=== PATIENT | male | born 1935 | race Caucasian/White ===

== ENCOUNTER 2017-10-08 04:30 | Observation (INO) | payer OTHER ==
[2017-10-08] VITALS (9 sets, daily range): BP systolic 119–189; BP diastolic 57–87; PULSE 52–68; RESP 16–18; TEMP 95.6–98.3; O2SAT 96–99
[2017-10-08] MEDS ORDERED: METO50TA PO (04:56)
[2017-10-08] MEDS ORDERED: TAMS0.4C4 (04:56)
[2017-10-08] MEDS ORDERED: PLAV75TA29 PO (04:56)
--- NOTE | 2017-10-08 05:17 | PD ---
HPI Chief Complaint: Complaint Time Seen by Provider: 05:09 Travel History International Travel<30 days: No Contact w/Intl Traveler<30days: No Traveled to known affect area: No History of Present Illness HPI Patient is an 82-year-old man coming in with 2 days of urinating dark red urine. He says he's urinated about 13 times almost a liter each time he says patient has a history of bladder stone in the past which caused him to have bleeding he also reports that he's been having back pain that has been steady for the last week or so he went to a chiropractor now he is wondering if he doesn't have a kidney stone causing the bleeding. Patient has no nausea no vomiting no diarrhea he has not seen another doctor for this and he has not taken any medication for this he has not been obstructed but he has dark red blood per urine PFSH Past Medical History Cancer: Yes (MELANOMA) Cardiac Catheterization: Yes Coronary Artery Disease: Yes Diminished Hearing: Yes ([place]KOLAI BOTH EARS) Hypertension: Yes Past Surgical History Coronary Artery Bypass Graft: Yes (X4) Coronary Stent: Yes (X2) Eye Surgery: Yes (BILAT CATARACTS) Tonsillectomy: Yes Other Surgery: Yes (RT LOWER LEG ARTERY, BLADDER, PROSTATE, MELANOMA) Social History Alcohol Use: No Tobacco Use: No Substance Use: No Allergies-Medications (Allergen,Severity, Reaction): Coded Allergies: codeine (Verified Allergy, Unknown, 10/08/17) Reported Meds & Prescriptions Reported Meds & Active Scripts Active Lisinopril 20 Mg Tab 20 Mg PO DAILY Reported Tamsulosin (Tamsulosin HCl) 0.4 Mg Cap 0.4 Mg HS Metoprolol Tartrate 50 Mg Tab 50 Mg PO DAILY Plavix (Clopidogrel Bisulfate) 75 Mg Tab 75 Mg PO DAILY Review of Systems Except as stated in HPI: all other systems reviewed are Neg Genitourinary: Positive: Hematuria Physical Exam Narrative GENERAL: no distress--> hematuria in urinal bedside dark purple urine in bottle SKIN: Warm and dry. HEAD: Atraumatic. Normocephalic. EYES: Pupils equal and round. No scleral icterus. No injection or drainage. ENT: No nasal bleeding or discharge. Mucous membranes pink and moist. NECK: Trachea midline. No JVD. CARDIOVASCULAR: Regular rate and rhythm. RESPIRATORY: No accessory muscle use. Clear to auscultation. Breath sounds equal bilaterally. GASTROINTESTINAL: Abdomen soft, non-tender, nondistended. Hepatic and splenic margins not palpable. MUSCULOSKELETAL: Extremities without clubbing, cyanosis, or edema. No obvious deformities. NEUROLOGICAL: Awake and alert. No obvious cranial nerve deficits. Motor grossly within normal limits. Five out of 5 muscle strength in the arms and legs. Normal speech. PSYCHIATRIC: Appropriate mood and affect; insight and judgment normal. Data Data Last Documented VS Orders Orders Complete Blood Count With Diff (10/08/17 05:13) Comprehensive Metabolic Panel (10/08/17 05:13) Ckmb (Isoenzyme) Profile (10/08/17 05:13) Troponin I (10/08/17 05:13) Lipase (10/08/17 05:13) Ct Abd/Pel W/O Iv Contrast (10/08/17 05:13) Urinalysis - C+S If Indicated (10/08/17 05:16) Metoprolol Succinate Er (Toprol Xl) (10/08/17 05:30) Place In Observation (10/08/17 ) Vital Signs (Adult) Q4H (10/08/17 06:11) Activity Oob Ad Bessie (10/08/17 06:11) Intake + Output LEW.QSHIFT (10/08/17 06:11) Diet Regular Basic (10/08/17 Breakfast) Sodium Chlor 0.9% 1000 Ml Inj (Ns 1000 M (10/08/17 06:11) Sodium Chloride 0.9% Flush (Ns Flush) (10/08/17 06:15) Sodium Chloride 0.9% Flush (Ns Flush) (10/08/17 09:00) Ondansetron Inj (Zofran Inj) (10/08/17 06:15) Scd Bilateral/Knee High LEW.BID (10/08/17 06:11) Saman Bilateral/Knee High LEW.QSHIFT (10/08/17 06:15) Acetaminophen (Tylenol) (10/08/17 06:15) Morphine Inj (Morphine Inj) (10/08/17 06:15) Docusate Sodium-Senna (Jerri-Colace) (10/08/17 09:00) Magnesium Hydroxide Liq (Milk Of Magnesi (10/08/17 06:15) Sennosides (Senokot) (10/08/17 06:15) Bisacodyl Supp (Dulcolax Supp) (10/08/17 06:15) Lactulose Liq (Lactulose Liq) (10/08/17 06:15) Consult Urology (10/08/17 ) Metoprolol Tartrate (Lopressor) (10/08/17 09:00) Tamsulosin (Flomax) (10/08/17 09:00) Levofloxacin 750 Mg Premix Inj (Levaquin (10/08/17 06:30) CKMB (10/08/17 05:20) CKMB% (10/08/17 05:20) Admit Order (Ed Use Only) (10/08/17 06:18) Labs Laboratory Tests Test 10/08/17 05:20 10/08/17 05:25 White Blood Count 5.7 TH/MM3 Red Blood Count 4.50 MIL/MM3 Hemoglobin 13.8 GM/DL Hematocrit 40.7 % Mean Corpuscular Volume 90.5 FL Mean Corpuscular Hemoglobin 30.6 PG Mean Corpuscular Hemoglobin Concent 33.9 % Red Cell Distribution Width 14.4 % Platelet Count 173 TH/MM3 Mean Platelet Volume 7.9 FL Neutrophils (%) (Auto) 62.3 % Lymphocytes (%) (Auto) 24.7 % Monocytes (%) (Auto) 9.6 % Eosinophils (%) (Auto) 2.7 % Basophils (%) (Auto) 0.7 % Neutrophils # (Auto) 3.6 TH/MM3 Lymphocytes # (Auto) 1.4 TH/MM3 Monocytes # (Auto) 0.5 TH/MM3 Eosinophils # (Auto) 0.2 TH/MM3 Basophils # (Auto) 0.0 TH/MM3 CBC Comment DIFF FINAL Differential Comment Blood Urea Nitrogen 19 MG/DL Creatinine 0.91 MG/DL Random Glucose 93 MG/DL Total Protein 7.2 GM/DL Albumin 3.6 GM/DL Calcium Level 8.8 MG/DL Alkaline Phosphatase 65 U/L Aspartate Amino Transf (AST/SGOT) 19 U/L Alanine Aminotransferase (ALT/SGPT) 16 U/L Total Bilirubin 0.5 MG/DL Sodium Level 141 MEQ/L Potassium Level 3.7 MEQ/L Chloride Level 108 MEQ/L Carbon Dioxide Level 26.3 MEQ/L Anion Gap 7 MEQ/L Estimat Glomerular Filtration Rate 80 ML/MIN Total Creatine Kinase 105 U/L Creatine Kinase MB 1.8 NG/ML Troponin I LESS THAN 0.02 NG/ML Lipase 116 U/L Urine Color DARK-BROWN Urine Turbidity CLEAR Urine pH 7.5 Urine Specific [place] 1.015 Urine Protein 30 mg/dL Urine Glucose (UA) NEG mg/dL Urine Ketones NEG mg/dL Urine Occult Blood MOD Urine Nitrite NEG Urine Bilirubin NEG Urine Urobilinogen LESS THAN 2.0 MG/DL Urine Leukocyte Esterase SMALL Urine RBC /hpf Urine WBC 180 /hpf Urine Bacteria OCC /hpf Microscopic Urinalysis Comment CULTURE INDICATED MDM Medical Decision Making Medical Screen Exam Complete: Yes Emergency Medical Condition: Yes Differential Diagnosis hematuria from infection vs renal stone vs bladder mass nor stone , other Narrative Course CT shows 1.2 cm bladder stone and pt continues to bleed significantly. needs admit for uro intervention, and consult H&H is normal Diagnosis Primary Impression: Hematuria Qualified Codes: R31.9 - Hematuria, unspecified Additional Impression: Urinary bladder stone Admitting Information Admitting Physician Requests: Observation Scripts Lisinopril (Lisinopril) 20 Mg Tab 20 MG PO DAILY for Blood Pressure Management, #30 TAB Prov: Christiano Gamez MD 10/08/17 Thom Law MD Oct 08, 2017 05:17
[2017-10-08] MEDS ORDERED: METOPROLOL SUCCINATE 25 MG EXTENDED RELEASE TAB PO ONE (05:30)
--- NOTE | 2017-10-08 05:55 | RADRPT ---
EXAM DATE/TIME: 10/08/2017 05:34 [facility] COMPARISON: No previous studies available for comparison. INDICATIONS : Right flank pain with hematuria. ORAL CONTRAST: No oral contrast ingested. RADIATION DOSE: 11.49 CTDIvol (mGy) MEDICAL HISTORY : Hypertension. Cardiovascular disease SURGICAL HISTORY : CABG ENCOUNTER: Initial ACUITY: 1 day PAIN SCALE: 7/10 LOCATION: Right flank TECHNIQUE: Volumetric scanning of the abdomen and pelvis was performed. Using automated exposure control and ad justment of the mA and/or kV according to patient size, radiation dose was kept as low as reasonably achievable to obtain optimal diagnostic quality images. DICOM format image data is available electro nically for review and comparison. FINDINGS: LOWER LUNGS: The visualized lower lungs are clear. LIVER: Homogeneous density without lesion. There is no dilation of the biliary tree. No calcified gallston es. SPLEEN: Normal size without lesion. PANCREAS: Within normal limits. KIDNEYS: 3 mm nonobstructing stone left lower pole. No right renal calculus. No ureteral calculus on either si de. There is no hydronephrosis or hydroureter. 18 mm mid zone cyst on the right. ADRENAL GLANDS: Within normal limits. VASCULAR: There is atherosclerosis of the abdominal aorta and iliac arteries. Infrarenal abdominal aorta measur es up to 3.3 cm. The common iliac arteries measure 24 mm on the right and 17 mm on the left. BOWEL/MESENTERY: There is diverticulosis of the colon, especially left-sided. No acute inflammatory changes. The appen althea is normal. ABDOMINAL WALL: Within normal limits. RETROPERITONEUM: There is no lymphadenopathy. REPRODUCTIVE: Markedly enlarged prostate. INGUINAL: There is no lymphadenopathy or hernia. There is a 12 mm stone and approximately 3.6 cm intermediate a ttenuation material or mass in the urinary bladder. MUSCULOSKELETAL: Within normal limits for patient age. CONCLUSION: 1. Large stone and either blood or a mass in the urinary bladder. Prostate is markedly enlarged and p robably contributing to at least some degree of bladder outlet obstruction. 2. 3 mm nonobstructing stone lower pole the left kidney. No obstructing stone or other acute renal ab normality demonstrated. 3. Aortoiliac atherosclerosis with mild aneurysmal dilatation of the vessels as above. 4. Diverticulosis of the colon without diverticulitis or other acute inflammatory changes. Clive Hardin MD on October 08, 2017 at 5:49 Board Certified Radiologist. This report was verified electronically.
[2017-10-08 05:59] LABS: AUTOMATED NEUTROPHIL # 3.6 TH/MM3 (1.8-7.7); BASOPHIL % 0.7 % (0.0-2.0); EOSINOPHIL # 0.2 TH/MM3 (0-0.4); EOSINOPHIL % 2.7 % (0.0-4.0); HEMATOCRIT 40.7 % (39.0-51.0); HEMOGLOBIN 13.8 GM/DL (13.0-17.0); LYMPH % 24.7 % (9.0-44.0); LYMPHOCYTE # 1.4 TH/MM3 (1.0-4.8); MEAN CELL VOLUME 90.5 FL (80.0-100.0); MEAN CORPUSCULAR HEMOGLOBIN 30.6 PG (27.0-34.0); MEAN CORPUSCULAR HGB CONC 33.9 % (32.0-36.0); MEAN PLATELET VOLUME 7.9 FL (7.0-11.0); MONO % 9.6 % (0.0-8.0); MONOCYTE # 0.5 TH/MM3 (0-0.9); NEUT % 62.3 % (16.0-70.0); PLATELET COUNT 173 TH/MM3 (150-450); RED CELL DISTRIBUTION WIDTH 14.4 % (11.6-17.2); WHITE BLOOD COUNT 5.7 TH/MM3 (4.0-11.0)
[2017-10-08 06:10] LABS: ALBUMIN 3.6 GM/DL (3.4-5.0); ALT (GPT) 16 U/L (12-78); AST (GOT) 19 U/L (15-37); BICARBONATE 26.3 MEQ/L (21.0-32.0); BLOOD UREA NITROGEN 19 MG/DL (7-18); CALCIUM 8.8 MG/DL (8.5-10.1); CHLORIDE 108 MEQ/L (98-107); CREATININE 0.91 MG/DL (0.60-1.30); GLOMERULAR FILTRATION RATE 80 ML/MIN (>89); GLUCOSE,RANDOM 93 MG/DL (74-106); SODIUM (NA) 141 MEQ/L (136-145)
[2017-10-08] MEDS ORDERED: SODIUM CHLOR 0.9% 1000 ML INJ 1,000 ML IV SCH (06:11)
[2017-10-08] MEDS ORDERED: ONDANSETRON HCL 4 MG/2 ML VIAL IVP PRN (06:15)
[2017-10-08] MEDS ORDERED: MORPHINE SULFATE 2 MG/ML INJ IV PUSH PRN (06:15)
[2017-10-08] MEDS ORDERED: LACTULOSE SYRUP 20 GM/30 ML CUP PO PRN (06:15)
[2017-10-08] MEDS ORDERED: SODIUM CHLORIDE 0.9% FLUSH 10 ML FLUSH IV FLUSH PRN (06:15)
[2017-10-08] MEDS ORDERED: SENNOSIDES 8.6 MG TAB PO PRN (06:15)
[2017-10-08] MEDS ORDERED: ACETAMINOPHEN 325 MG TAB PO PRN (06:15)
[2017-10-08] MEDS ORDERED: MAGNESIUM HYDROXIDE SUSP 30 ML CUP PO PRN (06:15)
[2017-10-08] MEDS ORDERED: BISACODYL 10 MG SUPP RECTAL PRN (06:15)
[2017-10-08 06:17] LABS: ALKALINE PHOSPHATASE 65 U/L (45-117); TOTAL BILIRUBIN ADULT 0.5 MG/DL (0.2-1.0); TOTAL PROTEIN 7.2 GM/DL (6.4-8.2); TROPONIN I LESS THAN 0.02 NG/ML (0.02-0.05)
[2017-10-08] MEDS ORDERED: LEVOFLOXACIN 750 MG PREMIX INJ 150 ML IV ONE (06:30)
[2017-10-08 06:42] LABS: BACTERIA, URINE OCC /hpf; BILIRUBIN, URINE NEG (NEG); BLOOD, URINE MOD (NEG); GLUCOSE,URINE NEG (NEG); KETONE, URINE NEG (NEG); NITRITE,URINE NEG (NEG); PH, URINE 7.5 (5.0-8.5); URINE COLOR DARK-BROWN (YELLW/STRAW); URINE LEUKOCYTE ESTERASE SMALL (NEG)
[2017-10-08] MEDS ORDERED: SODIUM CHLORIDE 0.9% FLUSH 10 ML FLUSH IV FLUSH SCH (09:00)
[2017-10-08] MEDS ORDERED: METOPROLOL TARTRATE 50 MG TAB PO SCH (09:00)
[2017-10-08] MEDS ORDERED: TAMSULOSIN HCL 0.4 MG CAP PO SCH (09:00)
[2017-10-08] MEDS ORDERED: DOCUSATE SODIUM 50 MG/SENNA 8.6 MG TAB PO SCH (09:00)
--- NOTE | 2017-10-08 14:41 | PD.CONS ---
HPI Service Urology Consult Requested By Primary Care Physician Elvira Chahal-Noris Diagnosis: History of Present Illness 82 yo male h/o BPH, recurrent bladder stones s/p TURP presents with 2 day h/o hematuria, dysuria, worsened urinary frequency, right sided lower back pain. Denies fevers, chills, nausea, vomiting, shortness of breath. CT A/P done in ER showed a 1 cm stone in his bladder, small 3 mm nonobstructing stone in his right kidney. Urology was consulted for these findings. He continues to have lower back pain, 3/10 in intensity. Describes it more an an ache. He went to a Chiropractor, which did not help. He has had many multiple bladder stones in the past, most recently 3-4 months ago when he was treated by Dr. Guthrie. He denies any issues with urination since having his TURP in [place] years ago. He takes Plavix 75 mg daily. Review of Systems Genitourinary: COMPLAINS OF: Hematuria Musculoskeletal: COMPLAINS OF: Muscle aches Except as stated in HPI: all other systems reviewed are Neg Past Family Social History Past Medical History BPH, urinary retention, recurrent bladder stones, HTN, CAD, Melanoma Past Surgical History CABG x 4, TURP, circumcision Reported Medications Flomax, Lisinopril, Metoprolol Allergies: Coded Allergies: codeine (Verified Allergy, Unknown, 10/08/17) Family History Denies Prostate Cancer, kidney stones Social History h/o tobacco use, occasional EtOH, denies illicit drugs; Physical Exam Vital Signs Date Time Temp Pulse Resp B/P (MAP) Pulse Ox O2 Delivery O2 Flow Rate FiO2 10/08/17 12:00 95.6 64 18 119/57 (77) 96 10/08/17 08:00 95.7 52 18 172/74 (106) 99 10/08/17 07:13 10/08/17 06:16 52 16 155/85 (108) 98 Room Air 10/08/17 05:04 65 16 181/87 (118) 98 Room Air 10/08/17 04:31 98.3 68 16 189/85 (119) 97 Room Air Physical Exam GENERAL: This is a well-nourished, well-developed patient, in no apparent distress. SKIN: No rashes, ecchymoses or lesions. Cool and dry. HEAD: Atraumatic. Normocephalic. No temporal or scalp tenderness. EYES: Pupils equal round and reactive. Extraocular motions intact. No scleral icterus. No injection or drainage. ENT: Nose without bleeding, purulent drainage or septal hematoma. Throat without erythema, tonsillar hypertrophy or exudate. Uvula midline. Airway patent. NECK: Trachea midline. No JVD or lymphadenopathy. Supple, nontender, no meningeal signs. CARDIOVASCULAR: Regular rate and rhythm without murmurs, gallops, or rubs. RESPIRATORY: Clear to auscultation. Breath sounds equal bilaterally. No wheezes , rales, or rhonchi. GASTROINTESTINAL: Abdomen soft, non-tender, nondistended. No hepato-splenomegaly , or palpable masses. No guarding. GENITOURINARY: phallus circumcised, testes descended without mass. MUSCULOSKELETAL: Extremities without clubbing, cyanosis, or edema. No joint tenderness, effusion, or edema noted. No calf tenderness. Negative Homans sign bilaterally. NEUROLOGICAL: Awake and alert. Cranial nerves II through XII intact. Motor and sensory grossly within normal limits. Five out of 5 muscle strength in all muscle groups. Normal speech. Lab results reviewed: Yes (hemoglobin stable) Laboratory Tests Test 10/08/17 05:20 10/08/17 05:25 White Blood Count 5.7 Red Blood Count 4.50 Hemoglobin 13.8 Hematocrit 40.7 Mean Corpuscular Volume 90.5 Mean Corpuscular Hemoglobin 30.6 Mean Corpuscular Hemoglobin Concent 33.9 Red Cell Distribution Width 14.4 Platelet Count 173 Mean Platelet Volume 7.9 Neutrophils (%) (Auto) 62.3 Lymphocytes (%) (Auto) 24.7 Monocytes (%) (Auto) 9.6 Eosinophils (%) (Auto) 2.7 Basophils (%) (Auto) 0.7 Neutrophils # (Auto) 3.6 Lymphocytes # (Auto) 1.4 Monocytes # (Auto) 0.5 Eosinophils # (Auto) 0.2 Basophils # (Auto) 0.0 CBC Comment DIFF FINAL Differential Comment Blood Urea Nitrogen 19 Creatinine 0.91 Random Glucose 93 Total Protein 7.2 Albumin 3.6 Calcium Level 8.8 Alkaline Phosphatase 65 Aspartate Amino Transf (AST/SGOT) 19 Alanine Aminotransferase (ALT/SGPT) 16 Total Bilirubin 0.5 Sodium Level 141 Potassium Level 3.7 Chloride Level 108 Carbon Dioxide Level 26.3 Anion Gap 7 Estimat Glomerular Filtration Rate 80 Total Creatine Kinase 105 Creatine Kinase MB 1.8 Troponin I LESS THAN 0.02 Lipase 116 Urine Color DARK-BROWN Urine Turbidity CLEAR Urine pH 7.5 Urine Specific [place] 1.015 Urine Protein 30 Urine Glucose (UA) NEG Urine Ketones NEG Urine Occult Blood MOD Urine Nitrite NEG Urine Bilirubin NEG Urine Urobilinogen LESS THAN 2.0 Urine Leukocyte Esterase SMALL Urine RBC Urine WBC 180 Urine Bacteria OCC Microscopic Urinalysis Comment CULTURE INDICATED Date/Time Source Procedure Growth Status 10/08/17 05:25 Urine Clean Catch Urine Culture Pending Received Result Diagram: 10/08/1751910/08/17519 Personally reviewed images: Yes (1.2 cm bladder stone, 3 mm nonobstructing right renal stone; no masses or hydronephrosis) Imaging Last Impressions Abdomen/Pelvis CT 10/08/17512 Signed Impressions: Service Date/Time: Sunday, October 08, 2017 05:34 - CONCLUSION: 1. Large stone and either blood or a mass in the urinary bladder. Prostate is markedly enlarged and probably contributing to at least some degree of bladder outlet obstruction. 2. 3 mm nonobstructing stone lower pole the left kidney. No obstructing stone or other acute renal abnormality demonstrated. 3. Aortoiliac atherosclerosis with mild aneurysmal dilatation of the vessels as above. 4. Diverticulosis of the colon without diverticulitis or other acute inflammatory changes. Clive Hardin MD Assessment and Plan Assessment and Plan 82 yo male h/o BPH, urinary retention,s/p TURP with hematuria, 1 cm bladder stone, 3 mm nonobstructing right renal stone. -conservative management. Hemoglobin stable. Hematuria likely from bladder stone. -Continue Flomax as prescribed -home on pain meds, antibiotics -F/U with Dr. Guthrie for treatment of bladder stone -Ok to continue Plavix 75 mg daily. Osmin Reynolds MD Oct 08, 2017 14:40
--- NOTE | 2017-10-08 16:14 | HHI.HP ---
[facility] Service [facility] Hospitalists Primary Care Physician Reid Chahal Admission Diagnosis hematuria and bladder mass, stone Diagnoses: Chief Complaint: Dark-colored urine. Travel History International Travel<30 Days: No Contact w/Intl Traveler <30 Da: No Traveled to Known Affected Are: No History of Present Illness This is a 82 white male with past medical history significant for melanoma, BPH, multiple kidney stones, peripheral arterial disease status post stents to the right lower extremity, CAD status post CABG 4 and stent placement on Plavix who presents to [facility] complaining of hematuria associated with mild right sided pain in the lower back. The patient denies fevers or chills states that the dark-colored urine started approximately 40 hours ago and yesterday while he was playing golf he would have episodes of hematuria as well. The patient otherwise denies any fevers, chills, nausea, vomiting, abdominal pain, diarrhea. CT of the abdomen and pelvis showed a large stone in either bladder or mass in the urinary bladder. A markedly enlarged prostate probably contributing to at least some degree of the bladder outlet obstruction. 3 mm nonobstructing stone in the lower pole of the left kidney. The patient was placed on outpatient observation to monitor hemoglobin and consult urology. Review of Systems As per HPI, other systems reviewed by me and negative. Past Family Social History Past Medical History 1. Melanoma. 2. History of cardiac catheterization. 3. CAD. 4. 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 5. Hypertension. 6. BPH. Past Surgical History 1. CABG 4. 2. Stent 2. 3. Bilateral cataract surgery. 4. Tonsillectomy. 5. Bladder surgery. 6. Prostate surgery. 7. Surgery for melanoma excision. Reported Medications Reported Meds & Active Scripts Active Reported Tamsulosin (Tamsulosin HCl) 0.4 Mg Cap 0.4 Mg HS Metoprolol Tartrate 50 Mg Tab 50 Mg PO DAILY Plavix (Clopidogrel Bisulfate) 75 Mg Tab 75 Mg PO DAILY Allergies: Coded Allergies: codeine (Verified Allergy, Unknown, 10/08/17) Active Ordered Medications Current Medications Medications (Trade) Dose Ordered Sig/Emerald Route Start Time Stop Time Status Last Admin Sodium Chloride 1,000 ml @ 100 mls/hr Q10H IV 10/08/17 06:11 10/08/17 06:49 (NS Flush) 2 ml UNSCH PRN IV FLUSH 10/08/17 06:15 (NS Flush) 2 ml BID IV FLUSH 10/08/17 09:00 (Zofran Inj) 4 mg Q6H PRN IVP 10/08/17 06:15 (Tylenol) 650 mg Q6H PRN PO 10/08/17 06:15 (Morphine Inj) 2 mg Q3H PRN IV PUSH 10/08/17 06:15 (Jerri-Colace) 1 tab BID PO 10/08/17 09:00 (Milk Of Magnesia Liq) 30 ml Q12H PRN PO 10/08/17 06:15 (Senokot) 17.2 mg Q12H PRN PO 10/08/17 06:15 (Dulcolax Supp) 10 mg DAILY PRN RECTAL 10/08/17 06:15 (Lactulose Liq) 30 ml DAILY PRN PO 10/08/17 06:15 (Lopressor) 50 mg DAILY PO 10/08/17 09:00 10/08/17 09:12 (Flomax) 0.4 mg DAILY PO 10/08/17 09:00 10/08/17 09:12 Family History Patient's father from a stroke at age 57. Patient's mother from an DC at age 63 and patient's brother from an DC at age 48. Social History The patient denies current smoking or alcohol intake. The patient however states he used to abuse tobacco at 10/03/1982 when he quit. He states he used to smoke 2-3 packs a day before that. The patient also Physical Exam Vital Signs Vital Signs Date Time Temp Pulse Resp B/P (MAP) Pulse Ox O2 Delivery O2 Flow Rate FiO2 10/08/17 15:58 95.9 61 17 182/86 (118) 98 10/08/17 12:00 95.6 64 18 119/57 (77) 96 10/08/17 08:00 95.7 52 18 172/74 (106) 99 10/08/17 07:13 10/08/17 06:16 52 16 155/85 (108) 98 Room Air 10/08/17 05:04 65 16 181/87 (118) 98 Room Air 10/08/17 04:31 98.3 68 16 189/85 (119) 97 Room Air Physical Exam GENERAL: This is a well-nourished, well-developed patient, in no apparent distress. SKIN: No rashes, ecchymoses or lesions. Cool and dry. HEAD: Atraumatic. Normocephalic. No temporal or scalp tenderness. EYES: Pupils equal round and reactive. Extraocular motions intact. No scleral icterus. No injection or drainage. ENT: Nose without bleeding, purulent drainage or septal hematoma. Throat without erythema, tonsillar hypertrophy or exudate. Uvula midline. Airway patent. NECK: Trachea midline. No JVD or lymphadenopathy. Supple, nontender, no meningeal signs. CARDIOVASCULAR: Regular rate and rhythm without murmurs, gallops, or rubs. RESPIRATORY: Clear to auscultation. Breath sounds equal bilaterally. No wheezes , rales, or rhonchi. GASTROINTESTINAL: Abdomen soft, non-tender, nondistended. No hepato-splenomegaly , or palpable masses. No guarding. MUSCULOSKELETAL: Extremities without clubbing, cyanosis, or edema. No joint tenderness, effusion, or edema noted. No calf tenderness. Negative Homans sign bilaterally. NEUROLOGICAL: Awake and alert. Cranial nerves II through XII intact. Motor and sensory grossly within normal limits. Five out of 5 muscle strength in all muscle groups. Normal speech. Laboratory Laboratory Tests Test 10/08/17 05:20 10/08/17 05:25 White Blood Count 5.7 Red Blood Count 4.50 Hemoglobin 13.8 Hematocrit 40.7 Mean Corpuscular Volume 90.5 Mean Corpuscular Hemoglobin 30.6 Mean Corpuscular Hemoglobin Concent 33.9 Red Cell Distribution Width 14.4 Platelet Count 173 Mean Platelet Volume 7.9 Neutrophils (%) (Auto) 62.3 Lymphocytes (%) (Auto) 24.7 Monocytes (%) (Auto) 9.6 Eosinophils (%) (Auto) 2.7 Basophils (%) (Auto) 0.7 Neutrophils # (Auto) 3.6 Lymphocytes # (Auto) 1.4 Monocytes # (Auto) 0.5 Eosinophils # (Auto) 0.2 Basophils # (Auto) 0.0 CBC Comment DIFF FINAL Differential Comment Blood Urea Nitrogen 19 Creatinine 0.91 Random Glucose 93 Total Protein 7.2 Albumin 3.6 Calcium Level 8.8 Alkaline Phosphatase 65 Aspartate Amino Transf (AST/SGOT) 19 Alanine Aminotransferase (ALT/SGPT) 16 Total Bilirubin 0.5 Sodium Level 141 Potassium Level 3.7 Chloride Level 108 Carbon Dioxide Level 26.3 Anion Gap 7 Estimat Glomerular Filtration Rate 80 Total Creatine Kinase 105 Creatine Kinase MB 1.8 Troponin I LESS THAN 0.02 Lipase 116 Urine Color DARK-BROWN Urine Turbidity CLEAR Urine pH 7.5 Urine Specific [place] 1.015 Urine Protein 30 Urine Glucose (UA) NEG Urine Ketones NEG Urine Occult Blood MOD Urine Nitrite NEG Urine Bilirubin NEG Urine Urobilinogen LESS THAN 2.0 Urine Leukocyte Esterase SMALL Urine RBC Urine WBC 180 Urine Bacteria OCC Microscopic Urinalysis Comment CULTURE INDICATED Date/Time Source Procedure Growth Status 10/08/17 05:25 Urine Clean Catch Urine Culture Pending Received Result Diagram: 10/08/17 0520 10/08/17 0520 Imaging Current Medications Medications (Trade) Dose Ordered Sig/Emerald Route Start Time Stop Time Status Last Admin Sodium Chloride 1,000 ml @ 100 mls/hr Q10H IV 10/08/17 06:11 10/08/17 06:49 (NS Flush) 2 ml UNSCH PRN IV FLUSH 10/08/17 06:15 (NS Flush) 2 ml BID IV FLUSH 10/08/17 09:00 (Zofran Inj) 4 mg Q6H PRN IVP 10/08/17 06:15 (Tylenol) 650 mg Q6H PRN PO 10/08/17 06:15 (Morphine Inj) 2 mg Q3H PRN IV PUSH 10/08/17 06:15 (Jerri-Colace) 1 tab BID PO 10/08/17 09:00 (Milk Of Magnesia Liq) 30 ml Q12H PRN PO 10/08/17 06:15 (Senokot) 17.2 mg Q12H PRN PO 10/08/17 06:15 (Dulcolax Supp) 10 mg DAILY PRN RECTAL 10/08/17 06:15 (Lactulose Liq) 30 ml DAILY PRN PO 10/08/17 06:15 (Lopressor) 50 mg DAILY PO 10/08/17 09:00 10/08/17 09:12 (Flomax) 0.4 mg DAILY PO 10/08/17 09:00 10/08/17 09:12 Caprini VTE Risk Assessment Caprini VTE Risk Assessment: Mod/High Risk (score >= 2) Caprini Risk Assessment Model Point Value = 1 Point Value = 2 Point Value = 3 Point Value = 5 Age 41-60 Minor surgery BMI > 25 kg/m2 Swollen legs Varicose veins or History of unexplained or recurrent spontaneous Oral contraceptives or hormone replacement Sepsis (< 1 month) Serious lung disease, including pneumonia (< 1 month) Abnormal pulmonary function Acute myocardial infarction Congestive heart failure (< 1 month) History of inflammatory bowel disease Medical patient at bed rest Age 61-74 Arthroscopic surgery Major open surgery (> 45 min) Laparoscopic surgery (> 45 min) Malignancy Confined to bed (> 72 hours) Immobilizing plaster cast Central venous access Age >= 75 History of VTE Family history of VTE Factor V Leiden Prothrombin [id number] Lupus anticoagulant Anticardiolipin antibodies Elevated serum homocysteine Heparin-induced thrombocytopenia Other congenital or acquired thrombophilia Stroke (< 1 month) Elective arthroplasty Hip, pelvis, or leg fracture Acute spinal cord injury (< 1 month) Prophylaxis Regimen Total Risk Factor Score Risk Level Prophylaxis Regimen 0-1 Low Early ambulation 2 Moderate Order ONE of the following: *Sequential Compression Device (SCD) *Heparin 5000 units SQ BID 3-4 Higher Order ONE of the following medications: *Heparin 5000 units SQ TID *Enoxaparin/Lovenox 40 mg SQ daily (WT < 150 kg, CrCl > 30 mL/min) *Enoxaparin/Lovenox 30 mg SQ daily (WT < 150 kg, CrCl > 10-29 mL/min) *Enoxaparin/Lovenox 30 mg SQ BID (WT < 150 kg, CrCl > 30 mL/min) AND/OR *Sequential Compression Device (SCD) 5 or more Highest Order ONE of the following medications: *Heparin 5000 units SQ TID (Preferred with Epidurals) *Enoxaparin/Lovenox 40 mg SQ daily (WT < 150 kg, CrCl > 30 mL/min) *Enoxaparin/Lovenox 30 mg SQ daily (WT < 150 kg, CrCl > 10-29 mL/min) *Enoxaparin/Lovenox 30 mg SQ BID (WT < 150 kg, CrCl > 30 mL/min) AND *Sequential Compression Device (SCD) Assessment and Plan Problem List: (1) Hematuria ICD Code: R31.9 - Hematuria, unspecified Plan: Hematuria secondary to nephrolithiasis as seen on CT of the abdomen and pelvis described above. Urology consulted. Appreciate recommendations. Urology recommended conservative management, recommended home pain medications and antibiotics. Recommended follow-up with Dr. Guthrie for treatment of bladder stone. We will continue Plavix since patient has had recent stents 6 months ago. Risk of in-stent thrombosis is higher than that of bleeding. Also hemoglobin is stable at 13.8. (2) Nephrolithiasis ICD Code: N20.0 - Calculus of kidney Plan: As above (3) BPH (benign prostatic hyperplasia) ICD Code: N40.0 - Benign prostatic hyperplasia without lower urinary tract symptoms Plan: Continue Flomax (4) Uncontrolled hypertension ICD Code: I10 - Essential (primary) hypertension Plan: Blood pressure is severely elevated in the 180 systolic. Continue metoprolol 50 mg p.o. daily. I will add lisinopril 20 mg p.o. daily. Continue to monitor vital signs. We will add clonidine 0.1 mg p.o. every 8 hours as needed for systolic blood pressure more than 170. (5) CAD (coronary artery disease) ICD Code: I25.10 - Atherosclerotic heart disease of [place] coronary artery without angina pectoris Plan: Status post CABG x4 and stent placement in 2017. We will continue Plavix, beta-tobias. Stent placement has been less than a year, will continue Plavix and monitor hemoglobin. Assessment and Plan DVT prophylaxis: SCDs, no chemoprophylaxis given hematuria. Discussed Condition With Patient, RN. Problem Qualifiers (1) BPH (benign prostatic hyperplasia): Qualified Codes: N40.0 - Benign prostatic hyperplasia without lower urinary tract symptoms Christiano Gamez MD Oct 08, 2017 16:14
[2017-10-08] MEDS ORDERED: LISINOPRIL 20 MG TAB PO ONE (17:15)
[2017-10-08] MEDS ORDERED: LISI-515 PO (18:44)
--- NOTE | 2017-10-08 18:44 | HHI.DCPOC ---
Discharge Care Plan Diagnosis: (1) Hematuria (2) CAD (coronary artery disease) (3) Nephrolithiasis (4) BPH (benign prostatic hyperplasia) (5) Uncontrolled hypertension Goals to Promote Your Health * To prevent worsening of your condition and complications * To maintain your health at the optimal level Directions to Meet Your Goals Take your medications as prescribed Follow your dietary instruction Follow activity as directed Keep your appointments as scheduled Take your immunizations and boosters as scheduled If your symptoms worsen call your PCP, if no PCP go to Urgent Care Center or Emergency Room Smoking is Dangerous to Your Health. Avoid second hand smoke Call the 24-hour hour crisis hotline for domestic abuse at Christiano Gamez MD Oct 08, 2017 18:44
[2017-10-09] MEDS ORDERED: CLOPIDOGREL 75 MG TAB PO SCH (09:00)
[2017-10-09] MEDS ORDERED: LISINOPRIL 20 MG TAB PO SCH (09:00)
== END 2017-10-08 19:47 | disposition home or self-care (01) ==
LOC: NEPE 04:30 → NEDA 06:19 → NEPHCDU 07:46
PROVIDERS: ADMIT Hospitalist; ATTEND Hospitalist
DX: N21.0 Calculus in bladder (principal); N20.0 Calculus of kidney; N32.0 Bladder-neck obstruction; N40.1 Benign prostatic hyperplasia with lower urinary tract symptoms; R33.8 Other retention of urine; I10 Essential (primary) hypertension; I73.9 Peripheral vascular disease, unspecified; I25.10 Atherosclerotic heart disease of native coronary artery without angina pectoris; H91.90 Unspecified hearing loss, unspecified ear; Z79.02 Long term (current) use of antithrombotics/antiplatelets; Z79.899 Other long term (current) drug therapy; Z85.820 Personal history of malignant melanoma of skin; Z95.1 Presence of aortocoronary bypass graft; Z95.5 Presence of coronary angioplasty implant and graft; Z87.891 Personal history of nicotine dependence
CPT/HCPCS: 74176; 80053; 81001; 82550; 82552; 83690; 84484; 85025; 87086; 96365; 96366; 99285; G0378; J1956; J7030